=== PATIENT | male | born 1950 | race Caucasian/White ===

== ENCOUNTER 2016-12-25 07:00 | Inpatient (IN) ==
[2016-12-25] MEDS ORDERED: FLUOROURACIL 2,400 MG in SODIUM CHLORIDE 0.9% 1,000 ML IV SCH (17:00)
[2016-12-25] MEDS ORDERED: BENZTROPINE 2 MG/2 ML AMP IV PRN (17:13)
[2016-12-25] MEDS ORDERED: ALUMINUM/MAGNES/SIMETH MAX STR 30 ML UDCUP PO PRN (17:13)
[2016-12-25] MEDS ORDERED: ACETAMINOPHEN 325 MG TABLET PO PRN (17:13)
[2016-12-25] MEDS ORDERED: LOPERAMIDE 2 MG CAPSULE PO PRN ×2 (17:13)
[2016-12-25] MEDS ORDERED: diphenhydrAMINE CAP 25 MG CAPSULE PO PRN (17:13)
[2016-12-25] MEDS ORDERED: chlorproMAZINE INJ 25 MG in SODIUM CHLORIDE 0.9% 100 ML IV PRN (17:13)
[2016-12-25] MEDS ORDERED: traMADol 50 MG TABLET PO PRN (17:13)
[2016-12-25] MEDS ORDERED: DEXTROSE 50% 25 GM/50 ML VIAL IV PRN (17:13)
[2016-12-25] MEDS ORDERED: MYLANTA/LIDO VISC 2:1 300 ML BOTTLE SWISH/SWAL PRN (17:13)
[2016-12-25] MEDS ORDERED: GLUCAGON 1 MG VIAL IM PRN (17:13)
[2016-12-25] MEDS ORDERED: MYLANTA/LIDO VISC 2:1 300 ML BOTTLE SWISH/SPIT PRN (17:13)
[2016-12-25] MEDS ORDERED: LACTULOSE 20 GM/30 ML UDCUP PO PRN (17:13)
[2016-12-25] MEDS ORDERED: guaiFENesin 200 MG/10 ML UDCUP PO PRN (17:13)
[2016-12-25] MEDS ORDERED: ALPRAZolam 0.25 MG TABLET PO PRN (17:13)
[2016-12-25] MEDS ORDERED: MAGNESIUM HYDROXIDE SUSP 30 ML UDCUP PO PRN (17:13)
[2016-12-25] MEDS ORDERED: chlorproMAZINE INJ 50 MG in SODIUM CHLORIDE 0.9% 100 ML IV PRN (17:13)
[2016-12-25] MEDS ORDERED: chlorproMAZINE 25 MG TABLET PO PRN (17:13)
[2016-12-25] MEDS: SODIUM CHLORIDE 0.9% IV SCH (17:21)
[2016-12-25] MEDS: FLUOROURACIL IV SCH (17:21)
[2016-12-25] MEDS: TEMAZEPAM 7.5 MG CAPSULE PO PRN (20:47)
[2016-12-25] MEDS: ONDANSETRON 4 MG/2 ML VIAL IV PRN (20:49)
[2016-12-26] MEDS: TEMAZEPAM 7.5 MG CAPSULE PO PRN (00:05)
[2016-12-26] MEDS: PROMETHAZINE INJ 25 MG in SODIUM CHLORIDE 0.9% 50 ML IV PRN ×3 (00:22→22:44)
[2016-12-26] MEDS: ONDANSETRON 4 MG/2 ML VIAL IV PRN (06:22)
--- NOTE | 2016-12-26 08:58 | Oncology History&Physical ---
Assessment and Plan (1) Pancreatic adenocarcinoma Status: Acute Current Visit: Yes (2) Pancreatic adenocarcinoma Status: Acute Assessment and plan: Chemotherapy as outlined with 48 hour inpatient stay anticipated. Mediport placement with surgical consultation Current Visit: Yes History of Present Illness Chief complaint: Chemotherapy History of present illness: Mr. Romo is a 66 year old male With recent development of adult onset diabetes. This occurred in the setting of significant weight loss approximately 40 pounds over a 5 month interval. Workup has revealed a pancreatic mass. The patient was evaluated by Dr. Raz Piedra at [facility] with plans for neoadjuvant chemotherapy. The patient was seen at the office yesterday and began on 3 drug therapy. He is admitted for a 46 hour infusion of fluorouracil and also to pursue Mediport placement in hopes of future treatments being strictly outpatient. This morning he does have some nausea but does not appear in acute pain or distress Home Medications Medication Instructions Recorded Confirmed Type HYDROcodone/ACETAMIN 10-325 [[place] 1 tablet PO Q4H 12/25/16 12/25/16 History 10-325] Lipase/Protease/Amylase [Creon 3 capsule PO TID W/MEALS 12/25/16 12/25/16 History 12,000 Units] Omeprazole [Prilosec] 20 mg PO DAILY 12/25/16 12/25/16 History Zolpidem Tartrate [Ambien] 10 mg PO BEDTIME 12/25/16 12/25/16 History Allergies Allergy/AdvReac Type Severity Reaction Status Date / Time NSAIDS (Non-Steroidal Allergy Verified 12/25/16 17:07 Anti-Inflamma Medical,Surgical,& Family Hx - Social History Smoking Status: Former smoker Frequency of Alcohol Use: Rarely - Constitutional Constitutional: Present: malaise, weight loss. Absent: fever(s), weight gain - EENT Eye: Absent: loss of vision Ears: Absent: ear discharge, ear pain Nose, mouth and throat: Absent: neck mass, neck pain, odynophagia, sore throat - Cardiovascular Cardiovascular ROS IM: Absent: edema, orthopnea - Respiratory Respiratory: Absent: dyspnea, hemoptysis - Gastrointestinal Gastrointestinal: Present: abdominal pain, constipation Exam - Constitutional Vitals: Period Temp Pulse Resp BP Sys/Parkinson Pulse Ox Last 24 Hr 97.6 F-98.3 F 73-86 18-20 123-147/76-88 93-93 General appearance: normal weight, no acute distress - Head Head Exam: Present: normal inspection, normocephalic, atraumatic - Eye Eye Exam: Present: EOMI. Absent: conjunctival injection, periorbital swelling, scleral icterus - ENT ENT exam: Present: normal external ear exam - Neck Neck exam: Present: normal inspection. Absent: lymphadenopathy - Respiratory Respiratory exam: Present: CTAB. Absent: accessory muscle use, chest wall tenderness - Cardiovascular Cardiovascular exam: Present: RRR. Absent: systolic murmur - GI/Abdominal GI/Abdominal exam: Absent: distended, firm, guarding - Extremities Exam Extremities exam: Present: normal inspection. Absent: edema - Neurological Exam Neurological exam: Present: alert, oriented X3
[2016-12-26] MEDS: PANTOPRAZOLE 40 MG TABLET PO SCH (09:24)
[2016-12-26] MEDS ORDERED: ceFAZolin 2,000 MG in PREMIX 1 EACH IV ONE (10:00)
--- NOTE | 2016-12-26 10:30 | General Surgery Consult Note ---
Assessment and Plan (1) Pancreatic adenocarcinoma Status: Acute Assessment and plan: Consultation for placement of Mediport for treatment of pancreatic adenocarcinoma. The risks of the procedure were reviewed with the patient including but limited to infection, bleeding, blood vessel injury, nerve injury , lung injury, wound healing complications, associated pain, reactions to medications. The patient expressed understanding of these risks and agrees to proceed with placement of the Mediport catheter today with Dr. Marc. Current Visit: Yes History of Present Illness Chief complaint: Starting Chemotherapy History of present illness: Mr. Romo is a 66 year old male with recent diagnosis of pancreatic adenocarcinoma starting chemotherapy for which we have been consulted for the port placement. The patient denies requiring central venous access or any injuries to the upper extremities. He has had no recent signs of acute illness including fever, chills, nausea, vomiting, diarrhea or dysuria. No local rashes. Home Medications Medication Instructions Recorded Confirmed Type HYDROcodone/ACETAMIN 10-325 [[place] 1 tablet PO Q4H 12/25/16 12/25/16 History 10-325] Lipase/Protease/Amylase [Creon 3 capsule PO TID W/MEALS 12/25/16 12/25/16 History 12,000 Units] Omeprazole [Prilosec] 20 mg PO DAILY 12/25/16 12/25/16 History Zolpidem Tartrate [Ambien] 10 mg PO BEDTIME 12/25/16 12/25/16 History Allergies Allergy/AdvReac Type Severity Reaction Status Date / Time NSAIDS (Non-Steroidal Allergy Verified 12/25/16 17:07 Anti-Inflamma Medical,Surgical,& Family Hx - Medical History Gastrointestinal: History of: Gastrointestinal Cancer (Pancreatic adenocarcinoma ) - Social History Smoking Status: Former smoker Frequency of Alcohol Use: Rarely - Constitutional Constitutional: Present: as per HPI - Cardiovascular Cardiovascular: Absent: chest pain at rest, dyspnea on exertion, orthopnea - Respiratory Respiratory: Absent: cough, wheezing - Gastrointestinal Gastrointestinal: Present: as per HPI - Genitourinary Genitourinary: Present: as per HPI - Musculoskeletal Musculoskeletal: Absent: arthralgias Hematologic/Lymphatic: Absent: easy bleeding, easy bruising Exam - Constitutional Vitals: Period Temp Pulse Resp BP Sys/Parkinson Pulse Ox Last 24 Hr 96.6 F-98.3 F 73-86 18-20 123-147/71-88 93-96 General appearance: no acute distress - Neck Neck exam: Present: normal inspection, trachea midline - Respiratory Respiratory exam: Present: clear to auscultation bilaterally - Cardiovascular Cardiovascular exam: Present: RRR - GI/Abdominal GI/Abdominal exam: Present: normal bowel sounds, soft. Absent: tenderness - Extremities Exam Extremities exam: Absent: calf tenderness, edema - Neurological Exam Neurological exam: Present: alert, oriented X3 - Skin Skin exam: Absent: rash Results - Labs Labs: No recent labs
--- NOTE | 2016-12-26 13:01 | EKG Report ---
Stationary ECG Study 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
[2016-12-26] MEDS: LIPASE/PROTEASE/AMYLASE 4,200 UNITS CAPSULE PO SCH ×2 (13:06→16:36)
[2016-12-26] MEDS: SODIUM CHLORIDE 0.9% IV SCH (18:12)
[2016-12-26] MEDS: FLUOROURACIL IV SCH (18:12)
[2016-12-26] MEDS: ZALEPLON 5 MG CAPSULE PO SCH ×2 (20:41→22:44)
[2016-12-27] MEDS ORDERED: BUPIVACAINE MPF 0.25% /EPI 30 ML VIAL ONE (06:25)
[2016-12-27] MEDS ORDERED: HEPARIN 5,000 UNIT/1 ML VIAL ONE (06:26)
[2016-12-27] MEDS ORDERED: TISSUE ADHESIVE 1 EACH APPLICATOR TOP ONE (06:26)
[2016-12-27] MEDS: LACTATED RINGERS 1,000 ML IV SCH ×2 (06:42→21:21)
[2016-12-27] MEDS ORDERED: PROPOFOL 200 MG/20 ML VIAL IV ONE (07:00)
[2016-12-27] MEDS ORDERED: ONDANSETRON 4 MG/2 ML VIAL ONE (07:00)
[2016-12-27] MEDS ORDERED: LIDOCAINE 2% 5 ML VIAL ONE (07:00)
[2016-12-27] MEDS ORDERED: MIDAZOLAM 2 MG/2 ML VIAL ONE (08:06)
[2016-12-27] MEDS ORDERED: fentaNYL 100 MCG/2 ML VIAL ONE (08:07)
--- NOTE | 2016-12-27 08:09 | Interventional Radiology Rpt ---
IR fluoro guide cv cath Indication: Intraoperative C-arm fluoroscopy. Comparison: None. Technique: A total of 2 images were obtained intraoperatively using C-arm fluoroscopy. Findings: Images were reviewed and deemed satisfactory by the operative physician. Total fluoroscopy time was 12.5 seconds. Impression: 1. C-arm usage as detailed. 12/27/2016 8:06 AM PROCEDURE INTERPRETED AT [facility] DEPARTMENT OF RADIOLOGY Final Report Signed by: Dr. Miguel Tripp
--- NOTE | 2016-12-27 08:16 | Operative Note ---
Date of procedure: 12/27/16 Pre-op diagnosis: Pancreatic cancer with need for chemotherapy access Post-op diagnosis: same Procedure: Preoperative diagnosis Need for central access for chemotherapy Postoperative diagnosis Same Procedures performed Right cephalic vein cutdown Mediport placement Fluoroscopic guidance and interpretation of images Findings The cephalic vein was used to access the central venous system and the catheter was placed into the cavoatrial junction under fluoroscopic guidance. Complications None apparent Specimen None Anesthesia Monitored with local Blood loss 10 mL Indications Need for central venous access for chemotherapy administration Description of procedure The patient was taken to the operating room and transferred to the operating table in the supine position. Pressure points were padded and SCDs were placed to bilateral lower extremities. Monitored anesthesia was administered. The risks, benefits, and alternatives of the operation were discussed in detail with the patient and the expected outcomes were reviewed. All the patient's questions were answered and she elects to proceed with the operation. The chest and neck was prepped bilaterally with chlorhexidine and sterile drapes were placed. Preoperative antibiotics were administered, and a timeout was performed. The right deltopectoral groove was palpated and local anesthetic was administered. An incision was then made and the Bovie electrocautery was used to dissected down to the pectoralis muscle and the deltopectoral fat pad is identified. This fat plane was then dissected into the cephalic vein was identified. The cephalic vein is controlled with 3-0 Vicryl ties proximally and distally and the distal end was tied down. A venotomy was then made and the Mediport catheter was inserted into the cephalic vein. The catheter threaded easily and fluoroscopy was used to position the tip of the catheter in the cavoatrial junction. The Mediport pocket was then created in the subcutaneous tissues just below the dermis, anterior chest wall below the deltopectoral groove incision. Local anesthetic was administered prior to making this flap. Mediport was then secured to the catheter with the flange. Mediport was accessed and returned blood easily and was flushed with heparin. Mediport was sewn into the pocket with 3-0 Vicryl sutures. A final fluoroscopic picture revealed good positioning of the tip of the catheter in the cavoatrial junction with no apparent complications. The skin incision was closed with 4-0 Monocryl subcuticular sutures and dressed with sterile skin glue. The patient was awakened from anesthesia and transferred to recovery. Postoperative plan Follow-up as needed Implants: powerport Anesthesia: MAC, local Surgeon / Physician: Zeyad Marc Estimated blood loss: minimal Specimens: none sent Condition: stable Disposition: PACU Discharge Plan - Discharge Medications No Action Lipase/Protease/Amylase [Creon 12,000 Units] 3 capsule PO TID W/MEALS HYDROcodone/ACETAMIN 10-325 [[place] 10-325] 1 tablet PO Q4H Zolpidem Tartrate [Ambien] 10 mg PO BEDTIME Omeprazole [Prilosec] 20 mg PO DAILY - Follow Up or Referral - Forms/Instructions
--- NOTE | 2016-12-27 08:31 | Oncology Progress Note ---
Assessment and Plan (1) Pancreatic adenocarcinoma Status: Acute Current Visit: Yes Oncology Subjective PN Interval history: Mr. Romo is a 66-year-old male with locally advanced pancreatic cancer who was initiated on neoadjuvant chemotherapy yesterday. He was currently on the room of my rounds this morning for Mediport placement. He is scheduled to be discharged later today once he finishes chemotherapy. I told his that I am fine if they would like to stay overnight and received a Neulasta tomorrow before discharge. I think he is anxious about going home out of fear for nausea. Exam - Constitutional Vitals: Period Temp Pulse Resp BP Sys/Parkinson Pulse Ox Last 24 Hr 97.5 F-98.6 F 58-74 16-20 103-147/51-82 95-99
[2016-12-27] MEDS: PROMETHAZINE INJ 25 MG in SODIUM CHLORIDE 0.9% 50 ML IV PRN ×2 (09:05→22:10)
[2016-12-27] MEDS: PANTOPRAZOLE 40 MG TABLET PO SCH (10:06)
[2016-12-27] MEDS: LIPASE/PROTEASE/AMYLASE 4,200 UNITS CAPSULE PO SCH ×3 (10:07→17:16)
--- NOTE | 2016-12-27 12:33 | Anesthesia Post-Op ---
Anesthesia Post OP - Post Ansesthetic Evaluation Patient seen in post op: Yes Resp: within normal limits CV: within normal limits Mental: within normal limits Temp: within normal limits [id number]: within normal limits Nausea and Vomiting: within normal limits Pain: within normal limits
[2016-12-27] MEDS: ZALEPLON 5 MG CAPSULE PO SCH (20:53)
[2016-12-28] MEDS: PROMETHAZINE INJ 25 MG in SODIUM CHLORIDE 0.9% 50 ML IV PRN (05:48)
[2016-12-28] MEDS ORDERED: HEPARIN LOCK FLUSH 500 UNIT/5 ML SYRINGE IV PRN (07:22)
[2016-12-28] MEDS: LIPASE/PROTEASE/AMYLASE 4,200 UNITS CAPSULE PO SCH (07:35)
[2016-12-28] MEDS: PANTOPRAZOLE 40 MG TABLET PO SCH ×2 (07:36→08:26)
[2016-12-28 08:15] VITALS: BP 92/51
--- NOTE | 2016-12-28 10:27 | Discharge Summary ---
Hospital Course - Hospital Course Hospital Course: Mr. Romo is a 66-year-old white male with newly diagnosed locally advanced pancreatic cancer who was admitted to begin chemotherapy. He completed chemotherapy last night but requested to stay overnight for observation. He is ready for discharge home today. He now has a Mediport in place. I had a lengthy discussion with he and his about the side effects that are possible over the next few days. He has a prescription for Phenergan and Zofran at home. He is scheduled to come back to the hospital tomorrow for Neulasta. He already has follow-up scheduled with Dr. Schneider in clinic in 2 weeks. Diagnosis - Discharge Diagnosis (1) Pancreatic adenocarcinoma Status: Acute Specialty Discharge - Follow Up or Referrals Follow up with: Zeyad Marc MD [Physician] - (Follow up with Dr. Marc only as needed for any issues with Mediport.) Chance Schneider MD [Physician] - 01/08/17 9:00 am (Return to [address] for outpatient shot on December 29.) Discharge Plan - Discharge Data Disposition: Disch To Home/Self Care Condition at Discharge: Stable Discharge Diet: advance to your usual diet Activity: resume usual activities as tolerated Hygiene: no restrictions Weight Bearing at Discharge: full weight bearing - Discharge Medications Continue Lipase/Protease/Amylase [Creon 12,000 Units] 3 capsule PO TID W/MEALS HYDROcodone/ACETAMIN 10-325 [[place] 10-325] 1 tablet PO Q4H Zolpidem Tartrate [Ambien] 10 mg PO BEDTIME Omeprazole [Prilosec] 20 mg PO DAILY - Follow Up or Referral Follow Up: Zeyad Marc MD [Physician] - (Follow up with Dr. Marc only as needed for any issues with Mediport.) Chance Schneider MD [Physician] - 01/08/17 9:00 am (Return to [address] for outpatient shot on December 29.) - Forms/Instructions [facility] Placement Exam - Constitutional Vitals: Period Temp Pulse Resp BP Sys/Parkinson Pulse Ox Last 24 Hr 97.6 F-99.6 F 61-70 16-21 92-158/51-71 93-98 Discharge Results Labs on day of discharge: Labs from last 24 hours 12/27/16 12:51 POC Glucose 204 H DS: Provider Date of admission: 12/25/16 16:15 Primary care physician: Aden Mendez Attending physician on admission: Chance Schneider MD Consults: 12/25/16 18:06 Consult to Dietitian [CONS] Routine Reason for Dietitian: Diet Instruction 12/26/16 08:32 Consult to Physician [CONS] Routine Comment: Mediport Placement Consulting Provider: Zeyad Marc Consulting Provider Notified: Yes When should Consulting Provider be notified: Now Consult to Specialist Group: Surgery When should Consulting Provider be notified: Now Person Notified: DAVID Date Notified: 12/26/16 Time Notified: 08:48 Discharging clinician: Jesse Hahn MD
== END 2016-12-28 11:30 | disposition home or self-care (01) | DRG 847 ==
LOC: N.4E 16:15
PROVIDERS: ADMIT Specialist; ATTEND Specialist